=== PATIENT | male | born 1945 | race Caucasian/White ===

== ENCOUNTER 2019-09-02 08:45 | Observation (INO) ==
[~2019-09-02 08:45] MED LIST: EPHEDRINE SULFATE INJ ONE; NS IRRIGATION 3000 ML ONE
[2019-09-02] MEDS ORDERED: D5 1/2 NS 1000 ML 1,000 ML IV ONE (09:11)
[2019-09-02] MEDS ORDERED: DILAUDID INJ IVP ONE (09:17)
[2019-09-02 09:19] LABS: BASOPHILS # (AUTO) 0.1 X10^3/uL (0.0-0.1); BASOPHILS % (AUTO) 1.2 % (0.2-1.0); EOSINOPHILS # (AUTO) 0.2 x10^3/uL (0.0-0.2); EOSINOPHILS % (AUTO) 1.7 % (0.9-2.9); HEMATOCRIT 43.8 % (42.0-54.0); HEMOGLOBIN 15.1 g/dL (13.5-18.0); LYMPHOCYTES # (AUTO) 1.9 X10^3/uL (1.3-2.9); LYMPHOCYTES % (AUTO) 15.3 % (21.0-51.0); MEAN CORPUSCULAR HEMOGLOBIN 31.4 pg (27.0-34.0); MEAN CORPUSCULAR HGB CONC 34.4 g/dL (33.0-35.0); MEAN CORPUSCULAR VOLUME 91.3 fL (80.0-100.0); MEAN PLATELET VOLUME 8.3 fL (7.4-11.0); MONOCYTES % (AUTO) 8.3 % (0.0-13.0); NEUTROPHILS % (AUTO) 73.5 % (42.0-75.0); PLATELET COUNT 268 X10^3/uL (150.0-450.0); RED CELL DISTRIBUTION WIDTH 13.6 % (11.6-16.5); WHITE BLOOD COUNT 12.3 X10^3/uL (3.6-10.0)
[2019-09-02] MEDS ORDERED: DILAUDID INJ ONE ×3 (09:21→15:41)
[2019-09-02 09:26] LABS: ALANINE AMINOTRANSFERASE 27 Units/L (12-78); ALBUMIN 3.5 g/dL (3.4-5.0); ALKALINE PHOSPHATASE 93 Units/L (46-116); AMYLASE 22 Units/L (25-115); ASPARTATE AMINO TRANSFERASE 16 Units/L (15-37); BLOOD UREA NITROGEN 12 mg/dL (7-18); CALCIUM 8.5 mg/dL (8.5-10.1); CARBON DIOXIDE 31.4 mmol/L (21-32); CHLORIDE 100 mmol/L (98-107); COR NA(FOR HYPERGLY) 138 mmol/L (136-145); CREATININE 0.81 mg/dL (0.70-1.30); LIPASE 76 Units/L (73-393); SODIUM 136 mmol/L (136-145); TOTAL PROTEIN 7.2 g/dL (6.4-8.2); eGFR NON BLACK RACES > 60 (>60)
--- NOTE | 2019-09-02 09:57 | RAD ---
HISTORYSURGERY CLEARANCE FOR GBSTUDYSingle portable view of the chest.COMPARISONNone availableFINDINGSThe trachea is deviated rightward. The cardiac silhouette is enlarged. There is a subcentimeter RUL pulmonary nodule seen. The lungs are clear without focal infiltrate or effusion. The bony thorax is unremarkable.IMPRESSIONNo acute cardiopulmonary disease. Enlarged cardiomediastinal silhouette with a subcentimeter RUL pulmonary nodule, possibly reflecting a granuloma. Left suprahilar nodularity also appreciated. These could reflect suprahilar lymph nodes in this patient. Both of these findings should be followed up with outpatient chest CT imaging following the surgery, however.Electronically signed by: HAILEY BATRES III (Sep 02, 2019 09:55:57)
[2019-09-02] MEDS ORDERED: D5 1/2 NS 1000 ML 1,000 ML IV SCH ×2 (10:00→14:00)
[2019-09-02] MEDS ORDERED: FENTANYL INJ 250 mcg ONE (11:18)
[2019-09-02] MEDS ORDERED: BACTROBAN TOPICAL OINT ONE (11:22)
[2019-09-02] MEDS ORDERED: ANCEF 1 GRAM IV PREMIX* 2 G/100 ML BAG IV ONE (11:22)
--- NOTE | 2019-09-02 11:37 | DR.UPDATE ---
H&P Update History and Physical Update: History and Physical reviewed and patient examined. Changes noted: Yes with the following: HAS BEEN SEEN IN THE OFFICE FOR COMPLAINS OF RUQ PAIN, NAUSEA, AND VOMITING. HE HAD A HIDA SCAN ON 08/19 WHICH REVEALED A GALLBALDDER EJECTION FRACTION OF 0%. SYMPTOMS HAVE BEEN PERISTENT, WITHOUT SIGNIFICANT IMPROVEMENT. WE ADMITTED PATIENT FOR FURTHER EVALUATION AND TREATMENT OF INTRACTABLE ABDOMINAL PAIN, CHOLECYSTITIS, AND INTRACTABLE NAUSEA AND VOMITING. WE WILL CONSULT . ON ARRIVAL TO THE HOSPITAL, LABS WERE OBTAINED. ABNORMAL LAB VALUES INCLUDE THE FOLLOWING: WBC 12.3, PTT 57.4, GLUCOSE 171, AMYLASE 22. A CHEST XRAY WAS OBTAINED AND REVEALED: No acute cardiopulmonary disease. Enlarged cardiomediastinal silhouette with a subcentimeter RUL pulmonary nodule, possibly reflecting a granuloma. Left suprahilar nodularity also appreciated. These could reflect suprahilar lymph nodes in this patient. Both of these findings should be followed up with outpatient chest CT imaging following the surgery, however. EKG REVEALED: SINUS RHYTHM WITH HR 70. WE WILL START IV FLUIDS, ZOFRAN 4MG IV Q4H PRN, AND DILAUDID 1MG IV Q4H PRN. HE IS MEDICALLY STABLE AND CLEAR FOR CHOLECYSTECTOMY IF THAT IS WHAT HE AND DECIDES. OTHERWISE, WE WILL FOLLOW UP WITH AM LABS AND CONTINUE TO MONITOR. Prescription drug monitoring program results: PDMP reviewed and no concerns identified H&P Reviewed: Yes Patient was examined?: Yes
[2019-09-02] MEDS: DILAUDID INJ IVP PRN ×6 (12:55→20:56)
--- NOTE | 2019-09-02 13:00 | OR.IMMED ---
Immediate Post-Op Note - Immediate Post-Op Note Pre-Op Diagnosis: recurrent cholecystitis . Post-Op Diagnosis: distended GB with thick wall . Procedure: Lap maximo . Surgeon/Taxation Agent: Beatriz. Specimens Removed: GB. Estimated Blood Loss: 10 cc Drains: NONE Condition: Stable (clear liquid today . .low fat in Am)
[2019-09-02] MEDS ORDERED: REGLAN INJ 10 MG VIAL IVP PRN (13:03)
[2019-09-02] MEDS ORDERED: PHENERGAN INJ 25 MG IM PRN (13:03)
[2019-09-02] MEDS ORDERED: ZOFRAN INJ 4 MG VIAL IVP PRN ×2 (13:03→15:31)
[2019-09-02] MEDS ORDERED: BENADRYL INJ 50 MG VIAL IVP PRN (13:03)
[2019-09-02] MEDS ORDERED: QUELICIN (OR ANECTINE) ONE (14:17)
[2019-09-02] MEDS ORDERED: NORCURON INJ 10 MG VIAL ONE (14:17)
[2019-09-02] MEDS ORDERED: NEOSTIGMINE INJ ONE (14:17)
[2019-09-02] MEDS ORDERED: ZOFRAN INJ 4 MG VIAL ONE (14:17)
[2019-09-02] MEDS ORDERED: XYLOCAINE 2 % (PLAIN) ONE (14:17)
[2019-09-02] MEDS ORDERED: SUPRANE ONE (14:17)
[2019-09-02] MEDS ORDERED: VERSED ONE (14:17)
[2019-09-02] MEDS ORDERED: ROBINUL ONE (14:17)
[2019-09-02] MEDS ORDERED: DIPRIVAN VIAL ONE (14:17)
[2019-09-02 15:45] VITALS: BMI 33.9
[2019-09-02] MEDS: NS 1000 ML 1,000 ML IV SCH (16:50)
[2019-09-02] MEDS ORDERED: HumuLIN R SUBCUT PRN (17:07)
[2019-09-02] MEDS: NORCO 5/325 MG TAB PO PRN (17:50)
[2019-09-02] MEDS ORDERED: SNACK - Diabetic Appropriate PO SCH (20:00)
[2019-09-03] MEDS: NORCO 5/325 MG TAB PO PRN ×2 (01:27→05:34)
[2019-09-03] MEDS: NS 1000 ML 1,000 ML IV SCH (05:13)
[2019-09-03 06:22] LABS: BASOPHILS # (AUTO) 0.1 X10^3/uL (0.0-0.1); BASOPHILS % (AUTO) 0.6 % (0.2-1.0); EOSINOPHILS # (AUTO) 0.1 x10^3/uL (0.0-0.2); EOSINOPHILS % (AUTO) 0.8 % (0.9-2.9); HEMATOCRIT 40.1 % (42.0-54.0); HEMOGLOBIN 13.9 g/dL (13.5-18.0); LYMPHOCYTES # (AUTO) 1.3 X10^3/uL (1.3-2.9); LYMPHOCYTES % (AUTO) 9.2 % (21.0-51.0); MEAN CORPUSCULAR HEMOGLOBIN 31.4 pg (27.0-34.0); MEAN CORPUSCULAR HGB CONC 34.6 g/dL (33.0-35.0); MEAN CORPUSCULAR VOLUME 90.8 fL (80.0-100.0); MEAN PLATELET VOLUME 8.9 fL (7.4-11.0); MONOCYTES # (AUTO) 1.1 x10^3/uL (0.3-0.8); MONOCYTES % (AUTO) 7.7 % (0.0-13.0); NEUTROPHILS # (AUTO) 11.6 x10^3/uL (2.2-4.8); NEUTROPHILS % (AUTO) 81.7 % (42.0-75.0); PLATELET COUNT 228 X10^3/uL (150.0-450.0); RED BLOOD COUNT 4.41 X10^6/uL (4.7-6.0); RED CELL DISTRIBUTION WIDTH 13.9 % (11.6-16.5); WHITE BLOOD COUNT 14.2 X10^3/uL (3.6-10.0)
[2019-09-03 06:37] LABS: ALANINE AMINOTRANSFERASE 24 Units/L (12-78); ALKALINE PHOSPHATASE 70 Units/L (46-116); ASPARTATE AMINO TRANSFERASE 19 Units/L (15-37); BLOOD UREA NITROGEN 12 mg/dL (7-18); CALCIUM 7.6 mg/dL (8.5-10.1); CARBON DIOXIDE 28.7 mmol/L (21-32); CHLORIDE 100 mmol/L (98-107); COR CA(FOR HYPOALB) 8.4 mg/dL (8.5-10.1); COR NA(FOR HYPERGLY) 137 mmol/L (136-145); CREATININE 0.72 mg/dL (0.70-1.30); SODIUM 136 mmol/L (136-145); TOTAL PROTEIN 6.1 g/dL (6.4-8.2); eGFR NON BLACK RACES > 60 (>60)
[2019-09-03] MEDS ORDERED: MAGNESIUM SULFATE 1 GRAM/100 mL PREMIX 1 GM/100 ML BAG IV PRN (07:50)
[2019-09-03] MEDS ORDERED: POTASSIUM CHL 60 MEQ/NS 0.45% 500 ML IV PRN (07:50)
[2019-09-03] MEDS ORDERED: K-DUR TAB 20 MEQ PO PRN (07:50)
[2019-09-03] MEDS ORDERED: K-RIDER 10 MEQ/NS 100 ML 10 MEQ/100 ML BAG IV PRN (07:50)
[2019-09-03] MEDS ORDERED: POTASSIUM CHL 40 MEQ/NS 0.45% 500 ML IV PRN (07:50)
[2019-09-03] MEDS ORDERED: KLOR-CON PO PRN (07:50)
[2019-09-03] MEDS ORDERED: MICRO K EXTEN CAP 10 MEQ PO PRN (07:50)
[2019-09-03] MEDS ORDERED: POTASSIUM CHLORIDE LIQ 20 MEQ UDC PO PRN (07:50)
[2019-09-03 09:28] VITALS: BP 136/77
[2019-09-03 09:48] LABS: BILIRUBIN,URINE NEGATIVE (NEGATIVE); BLOOD/HEMOGLOBIN,URINE NEGATIVE (NEGATIVE); GLUCOSE, URINE 2+ (NEGATIVE); KETONES,URINE NEGATIVE (NEGATIVE); LEUKOCYTE ESTERASE ,URINE NEGATIVE (NEGATIVE); NITRITES,URINE NEGATIVE (NEGATIVE); PROTEIN,URINE NEGATIVE (NEGATIVE); UROBILINOGEN,URINE NORMAL (NORMAL)
[2019-09-03 09:50] LABS: APPEARANCE,URINE HAZY (CLEAR); COLOR,URINE YELLOW (YELLOW)
[2019-09-03 10:01] LABS: BACTERIA,URINE NEGATIVE /HPF (NEGATIVE); RBC,URINE NONE SEEN /HPF (0-3); SQUAMOUS EPITHELIAL CELL,UR NEGATIVE /HPF (NEGATIVE)
== END 2019-09-03 11:45 | disposition home or self-care (01) ==
LOC: OBS → MED/SURG 15:06
PROVIDERS: ADMIT Internal Medicine; ATTEND Internal Medicine
DX: R10.11 Right upper quadrant pain; Z01.810 Encounter for preprocedural cardiovascular examination; E66.8 Other obesity; R11.2 Nausea with vomiting, unspecified; K82.8 Other specified diseases of gallbladder; K81.1 Chronic cholecystitis; R94.31 Abnormal electrocardiogram [ECG] [EKG]; R10.84 Generalized abdominal pain
CPT/HCPCS: 36415; 71010; 71045; 80053; 81001; 82150; 83690; 83735; 85025; 85610; 85730; 93005; 94760; 96360; 96361; 96372; 96374; 99100; A4216; A4222; G0378; J0330; J0690; J1170; J1815; J2250; J2405; J2704; J2710; J3010; J3490; J7030; S5010

== ENCOUNTER 2019-11-27 11:57 | Inpatient (IN) ==
[2019-11-27] MEDS ORDERED: TUSSIONEX PENNKINETIC SUSP PO PRN (15:22)
[2019-11-27] MEDS ORDERED: NS 1000 ML 1,000 ML IV ONE (15:22)
[2019-11-27] MEDS ORDERED: STERILE WATER IRRIGATION IR ONE (16:06)
[2019-11-27] MEDS: ROBITUSSIN DM PO SCH ×3 (16:15→21:49)
[2019-11-27] MEDS: VSL#3 PO SCH (16:15)
[2019-11-27] MEDS: ZOSYN VIAL 4.5 GRAMS 4.5 G in NS 100 ML IV + SPIKE MINIBAG* 100 ML IV SCH ×3 (16:16→23:40)
[2019-11-27] MEDS ORDERED: HumuLIN R SUBCUT PRN (16:21)
[2019-11-27 16:39] LABS: BASOPHILS # (AUTO) 0.1 X10^3/uL (0.0-0.1); BASOPHILS % (AUTO) 0.5 % (0.2-1.0); EOSINOPHILS # (AUTO) 0.1 x10^3/uL (0.0-0.2); EOSINOPHILS % (AUTO) 0.7 % (0.9-2.9); HEMATOCRIT 36.1 % (42.0-54.0); HEMOGLOBIN 12.7 g/dL (13.5-18.0); LYMPHOCYTES # (AUTO) 1.8 X10^3/uL (1.3-2.9); MEAN CORPUSCULAR HEMOGLOBIN 30.7 pg (27.0-34.0); MEAN CORPUSCULAR HGB CONC 35.2 g/dL (33.0-35.0); MEAN CORPUSCULAR VOLUME 87.2 fL (80.0-100.0); MONOCYTES # (AUTO) 1.8 x10^3/uL (0.3-0.8); NEUTROPHILS # (AUTO) 14.5 x10^3/uL (2.2-4.8); NEUTROPHILS % (AUTO) 78.8 % (42.0-75.0); PLATELET COUNT 339 X10^3/uL (150.0-450.0); RED BLOOD COUNT 4.14 X10^6/uL (4.7-6.0); RED CELL DISTRIBUTION WIDTH 13.8 % (11.6-16.5); WHITE BLOOD COUNT 18.3 X10^3/uL (3.6-10.0)
[2019-11-27 17:30] VITALS: BMI 31.1
[2019-11-27] MEDS: NS 1000 ML 1,000 ML IV SCH (17:34)
[2019-11-27 18:42] LABS: ALANINE AMINOTRANSFERASE 18 Units/L (12-78); ALBUMIN 2.8 g/dL (3.4-5.0); ALKALINE PHOSPHATASE 77 Units/L (46-116); ASPARTATE AMINO TRANSFERASE 15 Units/L (15-37); BLOOD UREA NITROGEN 22 mg/dL (7-18); CALCIUM 8.6 mg/dL (8.5-10.1); CARBON DIOXIDE 25.1 mmol/L (21-32); CHLORIDE 98 mmol/L (98-107); COR CA(FOR HYPOALB) 9.6 mg/dL (8.5-10.1); COR NA(FOR HYPERGLY) 137 mmol/L (136-145); SODIUM 136 mmol/L (136-145); eGFR NON BLACK RACES > 60 (>60)
--- NOTE | 2019-11-27 19:11 | RAD ---
HISTORYFEVER, COUGHSTUDYSingle portable view of the chest.COMPARISONChest radiograph dated November 23, 2019.FINDINGSThe trachea is midline. The cardiac silhouette is enlarged but stable. The lungs are clear without focal infiltrate or effusion. The bony thorax is unremarkable. There is no evidence for CHF. There is no pneumothorax observed. No other acute cardiopulmonary disease.IMPRESSIONNo acute cardiopulmonary disease or changes. Enlarged cardiac silhouette.Electronically signed by: HAILEY BATRES III (November 27, 2019 19:10:01)
[2019-11-27] MEDS ORDERED: SNACK - Diabetic Appropriate PO SCH (20:00)
[2019-11-27] MEDS ORDERED: NORCO 10/325 TAB PO PRN (22:42)
[2019-11-28 05:29] LABS: BASOPHILS # (AUTO) 0.1 X10^3/uL (0.0-0.1); BASOPHILS % (AUTO) 0.9 % (0.2-1.0); EOSINOPHILS # (AUTO) 0.2 x10^3/uL (0.0-0.2); EOSINOPHILS % (AUTO) 1.5 % (0.9-2.9); HEMATOCRIT 38.7 % (42.0-54.0); HEMOGLOBIN 13.4 g/dL (13.5-18.0); LYMPHOCYTES # (AUTO) 1.9 X10^3/uL (1.3-2.9); MEAN CORPUSCULAR HEMOGLOBIN 30.2 pg (27.0-34.0); MEAN CORPUSCULAR HGB CONC 34.7 g/dL (33.0-35.0); MEAN PLATELET VOLUME 8.1 fL (7.4-11.0); MONOCYTES # (AUTO) 1.6 x10^3/uL (0.3-0.8); MONOCYTES % (AUTO) 10.9 % (0.0-13.0); NEUTROPHILS # (AUTO) 10.8 x10^3/uL (2.2-4.8); NEUTROPHILS % (AUTO) 73.7 % (42.0-75.0); PLATELET COUNT 261 X10^3/uL (150.0-450.0); RED BLOOD COUNT 4.44 X10^6/uL (4.7-6.0); RED CELL DISTRIBUTION WIDTH 13.5 % (11.6-16.5); WHITE BLOOD COUNT 14.7 X10^3/uL (3.6-10.0)
[2019-11-28 05:39] LABS: ALANINE AMINOTRANSFERASE 16 Units/L (12-78); ALBUMIN 2.6 g/dL (3.4-5.0); ALKALINE PHOSPHATASE 70 Units/L (46-116); ASPARTATE AMINO TRANSFERASE 14 Units/L (15-37); BLOOD UREA NITROGEN 13 mg/dL (7-18); CALCIUM 8.2 mg/dL (8.5-10.1); CARBON DIOXIDE 28.5 mmol/L (21-32); CHLORIDE 101 mmol/L (98-107); COR CA(FOR HYPOALB) 9.3 mg/dL (8.5-10.1); COR NA(FOR HYPERGLY) 138 mmol/L (136-145); CREATININE 0.98 mg/dL (0.70-1.30); SODIUM 137 mmol/L (136-145); TOTAL PROTEIN 6.6 g/dL (6.4-8.2); eGFR NON BLACK RACES > 60 (>60)
[2019-11-28] MEDS: NS 1000 ML 1,000 ML IV SCH ×2 (05:51→21:17)
[2019-11-28] MEDS: ZOSYN VIAL 4.5 GRAMS 4.5 G in NS 100 ML IV + SPIKE MINIBAG* 100 ML IV SCH ×3 (05:52→21:12)
--- NOTE | 2019-11-28 06:15 | RAD ---
HISTORYFever, coughSTUDYCHEST, 1 [id number]/13/2020FINDINGSThe heart is mildly enlarged. No congestive heart failure is noted. No acute alveolar infiltrates or pleural effusions are identified. There is a benign calcified granuloma in the right upper lobe. Bony thorax is unremarkable.IMPRESSIONMild cardiomegaly without congestive heart failureNo acute infiltratesOld granulomatous diseaseElectronically signed by: SASCHA TAO (November 28, 2019 06:14:18)
[2019-11-28 06:20] LABS: ERYTHROCYTE SEDIMENTATION RATE 83 MM/HOUR (0-15)
[2019-11-28] MEDS: ROBITUSSIN DM PO SCH ×4 (08:11→21:12)
[2019-11-28] MEDS: OXYBUTYNIN CHLORIDE ER PO SCH (08:11)
[2019-11-28] MEDS: NORVASC TAB 10 MG PO SCH (08:11)
[2019-11-28] MEDS: VSL#3 PO SCH (08:11)
[2019-11-28] MEDS: NexIUM PO SCH (08:11)
[2019-11-28] MEDS: LOVENOX INJ 40 MG SYR SC SCH (08:29)
--- NOTE | 2019-11-28 08:56 | CT ---
HISTORYNasal congestion, headache, feverSTUDYSINUS W/O CONTechnique: Axial noncontrast images with coronal and sagittal reformats. Dose reduction procedures were used with mA/kv adjusted for body size.COMPARISONNoneFINDINGSThe frontal, ethmoid, sphenoid, and right maxillary sinuses are clear. There is minimal mucosal inflammatory thickening in the left maxillary sinus. The ostiomeatal complexes are patent. There is leftward nasal septal deviation. The middle ear spaces and mastoid air cells are clear.IMPRESSIONMinimal mucosal inflammatory changes in the left maxillary sinusThe remainder of the paranasal sinuses are clear.Electronically signed by: SASCHA TAO (November 28, 2019 08:55:17)
--- NOTE | 2019-11-28 09:12 | CT ---
HISTORYSOB, COUGH, FEVERSTUDYCT OF THE CHEST WITHOUT CONTRASTCOMPARISONMAY [address] CHE[address] X-RAYTECHNIQUEAxial CT was performed from the thoracic inlet to the upper abdomen WITHOUT IV contrast. The axial sequences are reconstructed with multiplaner reformats.FINDINGSThe lungs are equally expanded. Hypostatic atelectatic changes are demonstrated within the dependent lung bases, right more so than left. Calcified sub carinal, right paratracheal and right hilar lymph nodes are observed. Additionally, there are calcified left hilar nodes. Sub cm calcified granuloma are demonstrated within the right and left lung and also within the spleen and liver, all consistent with prior granulomatous disease.Bronchial wall thickening with nonocclusive endobronchial secretions are observed within the dependent lung bases. There is a bilobed peribronchial nodule with linear craniocaudal orientation in the right lower lobe, coronal image 61, axial image 66 through 72 with a maximum transverse diameter approaching 10 mm over a craniocaudal length of approximately 19 mm. Within the left lower lobe, there is a peribronchial nodule observed on image 40, series 3 with a maximum transverse diameter of 10 mm. Ground-glass nodule image 71, series 9 in the right lower lobe is seen subjacent to the previously described dominant bilobed peribronchial nodule. This smaller ground-glass nodule measures 4 mm.Otherwise, there are no separate sites of consolidation and the pleural spaces are clear. There is a small to moderate sized dependent pericardial effusion. Coronary artery atherosclerosis is evident. Atherosclerotic calcifications are also demonstrated in association with the aortic and mitral valve respectively. Thoracic aorta maintains a normal caliber. Heart size is average. The imaged portions of the upper abdomen demonstrate no acute abnormalities. The gallbladder is surgically absent. There is evidence of diverticulosis of the colon without evidence of acute diverticulitis within the field of view.Review of bone windows demonstrates degenerative findings of spondylosis and diffuse idiopathic skeletal hyperostosis with no aggressive lytic or blastic lesions or acute osseous abnormalities otherwise noted.IMPRESSIONFindings consistent with bronchiolitis within the bilateral lower lobes associated with minimal dependent atelectasis.Peribronchial nodules within the right and left lower lobe may be postinflammatory in nature. Short-term follow-up CT is recommended within 1-3 months to monitor for resolutionOld granulomatous disease of the chest, liver and spleen.Small to moderate pericardial effusionCoronary atherosclerosisColonic diverticulosis.Radiation dose reduction was achieved through individualized adjustment of kVP and/or mA, through adaptive statistical iterative reconstruction, and/or through automated tube current modulation.Electronically signed by: COLEEN DEJESUS (November 28, 2019 09:10:39)
--- NOTE | 2019-11-28 13:08 | DR.UPDATE ---
H&P Update History and Physical Update: History and Physical reviewed and patient examined. Changes noted: Yes with the following: WAS SEEN IN THE OFFICE TODAY FOR COMPLAINTS OF PERSISTENT COUGH, NASAL CONGESTION, FEVER, AND SHORTNESS OF BREATH. SYMPTOMS STARTED APPROXIMATELY TWO WEEKS AGO AND HAVE PROGRESSIVELY GOTTEN WORSE. COUGH IS DRY AND NON-PRODUCTIVE. HE WAS TESTED FOR COVID-19 ONE WEEK PRIOR. RESULTS WERE NEGATIVE. HE WAS STARTED ON A Z-PACK ON 11/23/19. HIS PMH INCLUDES HTN, GERD, DIABETES MELLITUS II, AND A CHOLECYTECTOMY. EXAMINATION REVEALED SCATTERED WHEEZING TO BILATERAL LUNGS. HE WAS ADMITTED TO THE HOSPITAL FOR FURTHER EVALUATION AND TREATMENT OF BRONCHOPNEUMONIA, ACUTE SINUS INFECTION, AND UNCONTROLLED DIABETES. ON ADMISSION, VITALS WERE 99.2-99-15-96%-126/69. LABS WERE OBTAINED. ABNORMAL LAB VALUES INCLUDE THE FOLLOWING: WBC 18.3, RBC 4.14, HGB 12.7, HCT 36.1, BUN 22, GLUCOSE 137, ALBUMIN 2.8. HE WAS SWABBED AGAIN FOR COVID-19. BLOOD CULTURES WERE SET UP. A CHEST XRAY WAS OBTAINED AND REVEALED: No acute cardiopulmonary disease or changes. Enlarged cardiac silhouette. A CHEST CT WITHOUT CONTRAST WAS OBTAINED AND REVEALED: Findings consistent with bronchiolitis within the bilateral lower lobes associated with minimal dependent atelectasis. Peribronchial nodules within the right and left lower lobe may be postinflammatory in nature. Short-term follow-up CT is recommended within 1-3 months to monitor for resolution. Old granulomatous disease of the chest, liver and spleen. Small to moderate pericardial effusion. Coronary atherosclerosis. Colonic diverticulosis. A SINUS CT WAS OBTAINED AND REVEALED: Minimal mucosal inflammatory changes in the left maxillary sinus. The remainder of the paranasal sinuses are clear. HE WAS STARTED ON NORMLA SALINE AT 75 ML/HR, ZOSYN 4.5G IV TID, TUSSIONEX 5ML Q12H PRN, LOVENOX 40MG SC DAILY, ROBITUSSIN DM 10ML PO QID, HUMULIN R SLIDING SCALE, AND HOME MEDICATIONS WERE RESUMED. OTHERWISE, WE WILL FOLLOW UP WITH AM LABS AND CHEST XRAY AND CONTINUE TO MONITOR. Prescription drug monitoring program results: PDMP was not reviewed H&P Reviewed: Yes Patient was examined?: Yes
[2019-11-28] MEDS: VOLTAREN 1 % GEL MULTI DOSE TUBE TOP SCH ×2 (13:44→21:13)
[2019-11-29] MEDS: VOLTAREN 1 % GEL MULTI DOSE TUBE TOP SCH (06:15)
[2019-11-29] MEDS: ZOSYN VIAL 4.5 GRAMS 4.5 G in NS 100 ML IV + SPIKE MINIBAG* 100 ML IV SCH (06:15)
[2019-11-29 06:17] LABS: BASOPHILS # (AUTO) 0.1 X10^3/uL (0.0-0.1); BASOPHILS % (AUTO) 0.9 % (0.2-1.0); EOSINOPHILS # (AUTO) 0.3 x10^3/uL (0.0-0.2); EOSINOPHILS % (AUTO) 2.1 % (0.9-2.9); HEMATOCRIT 38.8 % (42.0-54.0); HEMOGLOBIN 13.4 g/dL (13.5-18.0); LYMPHOCYTES # (AUTO) 1.7 X10^3/uL (1.3-2.9); LYMPHOCYTES % (AUTO) 14.3 % (21.0-51.0); MEAN CORPUSCULAR HGB CONC 34.5 g/dL (33.0-35.0); MEAN CORPUSCULAR VOLUME 86.9 fL (80.0-100.0); MEAN PLATELET VOLUME 8.1 fL (7.4-11.0); MONOCYTES # (AUTO) 1.2 x10^3/uL (0.3-0.8); MONOCYTES % (AUTO) 10.2 % (0.0-13.0); NEUTROPHILS # (AUTO) 8.8 x10^3/uL (2.2-4.8); NEUTROPHILS % (AUTO) 72.5 % (42.0-75.0); PLATELET COUNT 271 X10^3/uL (150.0-450.0); RED BLOOD COUNT 4.46 X10^6/uL (4.7-6.0); RED CELL DISTRIBUTION WIDTH 13.2 % (11.6-16.5); WHITE BLOOD COUNT 12.2 X10^3/uL (3.6-10.0)
[2019-11-29 06:25] LABS: ALANINE AMINOTRANSFERASE 17 Units/L (12-78); ALBUMIN 2.6 g/dL (3.4-5.0); ALKALINE PHOSPHATASE 70 Units/L (46-116); ASPARTATE AMINO TRANSFERASE 17 Units/L (15-37); BLOOD UREA NITROGEN 8 mg/dL (7-18); CALCIUM 8.4 mg/dL (8.5-10.1); CARBON DIOXIDE 26.9 mmol/L (21-32); CHLORIDE 103 mmol/L (98-107); COR CA(FOR HYPOALB) 9.5 mg/dL (8.5-10.1); COR NA(FOR HYPERGLY) 139 mmol/L (136-145); CREATININE 0.83 mg/dL (0.70-1.30); SODIUM 138 mmol/L (136-145); TOTAL PROTEIN 6.6 g/dL (6.4-8.2); eGFR NON BLACK RACES > 60 (>60)
--- NOTE | 2019-11-29 06:38 | RAD ---
HISTORYShortness of breathSTUDYCHEST, 1 [id number]/14/2020FINDINGSThe heart is enlarged. No congestive heart failure is noted. No acute alveolar infiltrates or pleural effusions are identified. There is a benign calcified granuloma in the right upper lobe. No pleural effusions are identified. Bony thorax is unremarkable.IMPRESSIONCardiomegaly without congestive heart failureNo acute infiltratesOld granulomatous diseaseElectronically signed by: SASCHA TAO (November 29, 2019 06:37:08)
[2019-11-29] MEDS ORDERED: POTASSIUM CHL 40 MEQ/NS 0.45% 500 ML IV PRN (06:50)
[2019-11-29] MEDS ORDERED: MICRO K EXTEN CAP 10 MEQ PO PRN (06:50)
[2019-11-29] MEDS ORDERED: KLOR-CON PO PRN (06:50)
[2019-11-29] MEDS ORDERED: POTASSIUM CHLORIDE LIQ 20 MEQ UDC PO PRN (06:50)
[2019-11-29] MEDS ORDERED: K-DUR TAB 20 MEQ PO PRN (06:50)
[2019-11-29] MEDS ORDERED: POTASSIUM CHL 60 MEQ/NS 0.45% 500 ML IV PRN (06:50)
[2019-11-29] MEDS ORDERED: K-RIDER 10 MEQ/NS 100 ML 10 MEQ/100 ML BAG IV PRN (06:50)
[2019-11-29 06:57] LABS: ERYTHROCYTE SEDIMENTATION RATE 93 MM/HOUR (0-15)
[2019-11-29] MEDS ORDERED: MAGNESIUM SULFATE 1 GRAM/100 mL PREMIX 1 GM/100 ML BAG IV PRN (08:15)
[2019-11-29] MEDS: OXYBUTYNIN CHLORIDE ER PO SCH (09:28)
[2019-11-29] MEDS: NORVASC TAB 10 MG PO SCH (09:28)
[2019-11-29] MEDS: VSL#3 PO SCH (09:28)
[2019-11-29] MEDS: NexIUM PO SCH (09:29)
[2019-11-29] MEDS: ROBITUSSIN DM PO SCH (09:29)
[2019-11-29] MEDS: LOVENOX INJ 40 MG SYR SC SCH (09:29)
[2019-11-29 09:50] VITALS: BP 126/65
== END 2019-11-29 12:35 | disposition home or self-care (01) | DRG 195 ==
LOC: ICU 14:52 → MED/SURG 11-28 13:51
PROVIDERS: ADMIT Internal Medicine; ATTEND Internal Medicine
DX: Z11.59 Encounter for screening for other viral diseases; K21.9 Gastro-esophageal reflux disease without esophagitis; J01.00 Acute maxillary sinusitis, unspecified; J18.0 Bronchopneumonia, unspecified organism; I10 Essential (primary) hypertension; E11.65 Type 2 diabetes mellitus with hyperglycemia; R06.02 Shortness of breath; R50.9 Fever, unspecified
CPT/HCPCS: 36415; 70486; 71010; 71045; 71250; 80053; 83735; 85025; 85652; 86140; 87040; 87077; 87186; A4222; J1650; J2543; J7030; J7050

== ENCOUNTER 2020-03-07 12:34 | Observation (INO) ==
[2020-03-07 14:43] LABS: BASOPHILS # (AUTO) 0.1 X10^3/uL (0.0-0.1); BASOPHILS % (AUTO) 0.7 % (0.2-1.0); EOSINOPHILS # (AUTO) 0.7 x10^3/uL (0.0-0.2); EOSINOPHILS % (AUTO) 3.5 % (0.9-2.9); HEMATOCRIT 37.1 % (42.0-54.0); HEMOGLOBIN 12.5 g/dL (13.5-18.0); LYMPHOCYTES # (AUTO) 1.6 X10^3/uL (1.3-2.9); LYMPHOCYTES % (AUTO) 8.5 % (21.0-51.0); MEAN CORPUSCULAR HEMOGLOBIN 27.6 pg (27.0-34.0); MEAN CORPUSCULAR HGB CONC 33.6 g/dL (33.0-35.0); MEAN CORPUSCULAR VOLUME 82.1 fL (80.0-100.0); MONOCYTES # (AUTO) 1.7 x10^3/uL (0.3-0.8); MONOCYTES % (AUTO) 8.7 % (0.0-13.0); NEUTROPHILS # (AUTO) 14.9 x10^3/uL (2.2-4.8); NEUTROPHILS % (AUTO) 78.6 % (42.0-75.0); PLATELET COUNT 328 X10^3/uL (150.0-450.0); RED BLOOD COUNT 4.52 X10^6/uL (4.7-6.0); RED CELL DISTRIBUTION WIDTH 14.1 % (11.6-16.5)
[2020-03-07 14:53] LABS: ALANINE AMINOTRANSFERASE 24 Units/L (12-78); ALBUMIN 2.9 g/dL (3.4-5.0); ALKALINE PHOSPHATASE 105 Units/L (46-116); ASPARTATE AMINO TRANSFERASE 19 Units/L (15-37); BLOOD UREA NITROGEN 13 mg/dL (7-18); CALCIUM 8.5 mg/dL (8.5-10.1); CARBON DIOXIDE 27.6 mmol/L (21-32); CHLORIDE 98 mmol/L (98-107); COR CA(FOR HYPOALB) 9.4 mg/dL (8.5-10.1); COR NA(FOR HYPERGLY) 135 mmol/L (136-145); CREATININE 1.05 mg/dL (0.70-1.30); SODIUM 134 mmol/L (136-145); TOTAL PROTEIN 7.5 g/dL (6.4-8.2); eGFR NON BLACK RACES > 60 (>60)
[2020-03-07 15:25] LABS: CREATINE KINASE 20 Units/L (39-308); CREATINE KINASE MB < 1.0 ng/mL (0-4.0); TROPONIN I < 0.02 ng/mL (0-1.5)
[2020-03-07] MEDS: PULMICORT NEB TX 0.5 MG NEB SCH ×2 (15:35→20:45)
[2020-03-07 15:53] LABS: ABG ALLEN TEST POS; ABG HCO3 25.5 mmol/L (22-26)
--- NOTE | 2020-03-07 16:03 | RAD ---
HISTORYChest pain SOBSTUDYPortable AP [id number]/15/2020FINDINGSContinued cardiomegaly with left ventricular hypertrophy. The lungs are clear. There is no evidence for CHF, pneumonia or pleural fluid.IMPRESSIONNo change; no acute fin dings. Stable cardiac enlargement.Electronically signed by: DAVID MATUTE (Mar 07, 2020 16:02:28)
[2020-03-07 17:29] VITALS: BMI 26.9
[2020-03-07] MEDS: NS 1000 ML 1,000 ML IV SCH (17:31)
[2020-03-07] MEDS: LEVAQUIN PREMIX IV 500 MG 500 MG/100 ML BAG IV SCH (17:31)
[2020-03-07] MEDS: DUONEB 0.5 MG/3 MG (3 mL) NEB SCH ×2 (18:00→20:45)
[2020-03-07 19:25] LABS: CREATINE KINASE 20 Units/L (39-308); CREATINE KINASE MB < 1.0 ng/mL (0-4.0); TROPONIN I < 0.02 ng/mL (0-1.5)
[2020-03-07] MEDS: RESTORIL CAP 15 MG PO PRN ×2 (20:57→21:03)
[2020-03-07 23:16] LABS: CKMB % 7.7 % (<4); CREATINE KINASE 13 Units/L (39-308); CREATINE KINASE MB < 1.0 ng/mL (0-4.0); TROPONIN I < 0.02 ng/mL (0-1.5)
[2020-03-08] MEDS: NS 1000 ML 1,000 ML IV SCH ×3 (04:38→20:22)
[2020-03-08 05:06] LABS: ABG ALLEN TEST POS; ABG BASE EXCESS 3.6 mmol/L (-2.0-2.0); ABG HCO3 26.1 mmol/L (22-26)
[2020-03-08 06:18] LABS: BASOPHILS % (AUTO) 0.2 % (0.2-1.0); EOSINOPHILS # (AUTO) 0.6 x10^3/uL (0.0-0.2); EOSINOPHILS % (AUTO) 3.4 % (0.9-2.9); HEMATOCRIT 34.4 % (42.0-54.0); HEMOGLOBIN 11.2 g/dL (13.5-18.0); LYMPHOCYTES # (AUTO) 1.8 X10^3/uL (1.3-2.9); LYMPHOCYTES % (AUTO) 10.3 % (21.0-51.0); MEAN CORPUSCULAR HEMOGLOBIN 27.2 pg (27.0-34.0); MEAN CORPUSCULAR HGB CONC 32.7 g/dL (33.0-35.0); MEAN CORPUSCULAR VOLUME 83.1 fL (80.0-100.0); MEAN PLATELET VOLUME 8.9 fL (7.4-11.0); MONOCYTES # (AUTO) 1.6 x10^3/uL (0.3-0.8); MONOCYTES % (AUTO) 9.1 % (0.0-13.0); NEUTROPHILS # (AUTO) 13.2 x10^3/uL (2.2-4.8); PLATELET COUNT 303 X10^3/uL (150.0-450.0); RED BLOOD COUNT 4.14 X10^6/uL (4.7-6.0); RED CELL DISTRIBUTION WIDTH 14.1 % (11.6-16.5); WHITE BLOOD COUNT 17.1 X10^3/uL (3.6-10.0)
[2020-03-08 06:26] LABS: ALANINE AMINOTRANSFERASE 18 Units/L (12-78); ALBUMIN 2.5 g/dL (3.4-5.0); ALKALINE PHOSPHATASE 91 Units/L (46-116); ASPARTATE AMINO TRANSFERASE 14 Units/L (15-37); BLOOD UREA NITROGEN 9 mg/dL (7-18); CALCIUM 8.2 mg/dL (8.5-10.1); CARBON DIOXIDE 28.3 mmol/L (21-32); CHLORIDE 101 mmol/L (98-107); COR CA(FOR HYPOALB) 9.4 mg/dL (8.5-10.1); COR NA(FOR HYPERGLY) 137 mmol/L (136-145); CREATININE 0.95 mg/dL (0.70-1.30); SODIUM 137 mmol/L (136-145); TOTAL PROTEIN 6.6 g/dL (6.4-8.2); eGFR NON BLACK RACES > 60 (>60)
--- NOTE | 2020-03-08 07:03 | RAD ---
HISTORYShortness of breathSTUDYChest AP [id number]/22/2020FINDINGSThe heart remains enlarged. No congestive heart failure is noted. No acute alveolar infiltrates or pleural effusions are identified. There is a benign calcified granuloma in the right upper lobe.IMPRESSIONContinued cardiomegaly without congestive heart failureNo definite infiltratesElectronically signed by: SASCHA TAO (Mar 08, 2020 07:02:37)
[2020-03-08] MEDS: LEVAQUIN PREMIX IV 500 MG 500 MG/100 ML BAG IV SCH (08:06)
[2020-03-08] MEDS ORDERED: STERILE WATER IRRIGATION IR ONE (09:33)
[2020-03-08] MEDS: DUONEB 0.5 MG/3 MG (3 mL) NEB SCH ×4 (09:40→21:59)
[2020-03-08] MEDS: PULMICORT NEB TX 0.5 MG NEB SCH ×2 (09:40→21:59)
[2020-03-08] MEDS ORDERED: BENADRYL CAP/TAB 25 MG PO PRN (10:28)
[2020-03-08] MEDS ORDERED: NORCO 5/325 MG TAB ONE (11:15)
[2020-03-08] MEDS: CIPRO IV 400 MG PREMIX* 400 MG/200 ML IV.SOLN. IV SCH ×2 (11:15→20:22)
[2020-03-08] MEDS: ZOSYN VIAL 4.5 GRAMS 4.5 G in NS 100 ML IV + SPIKE MINIBAG* 100 ML IV SCH ×3 (11:16→21:18)
[2020-03-08] MEDS: DIFLUCAN 200 MG IV PREMIX* 200 MG/100 ML BAG IV SCH (11:16)
[2020-03-08] MEDS: PERCOCET TAB 5/325 MG PO PRN ×2 (11:18→20:21)
[2020-03-08] MEDS: COLCRYS TAB 0.6 MG PO SCH ×2 (11:26→20:20)
[2020-03-08] MEDS: OXYBUTYNIN CHLORIDE ER PO SCH (11:27)
[2020-03-08] MEDS: GLUCOPHAGE PO SCH ×2 (11:28→20:21)
[2020-03-08] MEDS ORDERED: DUONEB 0.5 MG/3 MG (3 mL) NEB PRN (18:52)
[2020-03-08] MEDS ORDERED: GLUCOPHAGE ONE (19:00)
[2020-03-08] MEDS: RESTORIL CAP 15 MG PO PRN (20:20)
--- NOTE | 2020-03-08 22:32 | DR.H&P ---
H&P - History & Physical for Day of: H&P Date: 03/07/20 - Chief Complaint Chief Complaint: SHORTNESS OF BREATH, COUGH, WEAKNESS - History of Present Illness History of Present Illness: WAS A DIRECT ADMISSION DUE TO COMPLAINTS OF CHEST PAIN, COUGH, SHORTNESS OF BREATH, WEAKNESS, INSOMNIA, AND DECREASED APPETITE. HE HAD A CHEST CT WITH CONTRAST ONE WEEK AGO, WHICH REVEALED 1. Moderate-sized pericardial effusion and trace left pleural effusion. 2. Resolution of previous bibasilar nodules which may have been inflammatory in nature. No new infiltrates. 3. Coronary atherosclerotic disease. HE ALSO HAD AN ABDOMEN CT WHICH REVEALED: Unchanged enlarged liver and spleen with calcified granulomas in the spleen and liver 2. New very small left pleural effusion and increasing size of pericardial effusion. HE WAS REFERRED TO CARDIOLOGY. THEY PLAN FOR AN ECHO NEXT WEEK. HE HAS BEEN SWABBED FOR COVID-19 SEVERAL TIMES, BUT HAS BEEN NEGATIVE. HIS PMH INCLUDES HTN, GERD, CHRONIC BACK PAIN, DM II, AND CHOLECYSTECTOMY. ON ARRIVAL TO THE HOSPITAL, VITALS WERE 98.7-88-20-98%-137/63. LABS WERE OBTAINED. ABNORMAL LAB VALUES INCLUDE THE FOLLOWING: WBC 19.0, RBC 4.52, HGB 12.5, HCT 37.1, SODIUM 134, GLUCOSE 159, FERRITIN 914, CRP 80.80, BNP 481, ALBUMIN 2.9. CREATINE KINASE 20, CARDIAC ENZYMES OTHERWISE WITHIN NORMAL LIMITS. AN ABG WAS OBTAINED AND REVEALED: PH 7.470, PC02 35, P02 77, HC03 25.5, 02 SAT 96, FI02 21. COVID-19 PENDING. BLOOD CULTURES WERE SET UP. A CHEST XRAY WAS OBTAINED AND REVEALED: No change; no acute findings. Stable cardiac enlargement. EKG REVEALED: SINUS RHYTHM WITH HR 84. HE WAS STARTED ON LEVAQUIN 500MG IV DAILY, NS AT 75 ML/HR, DUONEBS QID, PULMICORT BID, TEMAZEPAM 15MG PO HS, AND SUPPLEMENTAL OXYGEN. WE WILL OBTAIN SERIAL CARDIAC ENZYMES AND EKGS. OTHERWISE, WE PLAN TO FOLLOW UP WITH AM LABS AND CHEST XRAY AND CONTINUE TO MONITOR. - Past Medical History Past Medical History: Hypertension, Diabetes, GERD, Gout, Sleep Apnea Additional Medical History: HX OF BPH - Past Surgical History Surgical History: Cholecystectomy Additional Surgical History: HX OF CATARACT SURGERY - Family History Family Medical History: Diabetes Mellitus, Cancer, Hypertension - Social History Does any household member use tobacco: No Alcohol Use: Occasionally Drug Use: None - Medications Home Medications: Sulfa (Sulfonamide Antibiotics) [SULFA] Allergy (Verified 01/03/20 13:03) CONTINUE taking the following medications colchicine [Colcrys] 0.6 mg PO BID 03/07/20 [History] diphenhydramine HCl [Allergy (diphenhydramine)] 25 mg PO PRN PRN 03/07/20 [History] oxycodone-acetaminophen [Endocet] 7.5 tab PO PRN PRN 03/07/20 [History] - Review of Systems Constitutional: See HPI, Weakness, Malaise, Other (DECREASED APPETITE ) Eyes: No Symptoms Reported ENT: No Symptoms Reported Respiratory: See HPI, Cough, Shortness of Breath, SOB with Excertion Cardiovascular: No Symptoms Reported Gastrointestinal: No Symptoms Reported Genitourinary: No Symptoms Reported Musculoskeletal: No Symptoms Reported Skin: No Symptoms Reported Neurological: Weakness - Physical Exam Vital Signs: Temperature 98.3 F Pulse Rate [Left Radial] 87 Pulse Rate 80 Respiratory Rate 20 Blood Pressure [Left Arm] 116/54 Blood Pressure [Right Arm] 121/68 Blood Pressure [Left Arm] 105/57 Blood Pressure 120/57 O2 Sat by Pulse Oximetry 95 Oriented: Normal Eyes: Normal Ear: Normal Nose: Normal Throat: Normal Respiratory: Diminished Throughout Cardiovascular: Normal : Normal Auscultation: Bowel Sounds: Normal Palpation: Normal Tenderness: Normal Skin: Normal Musculoskeletal: Normal Psychiatric: Normal Mood Description: Calm Affect: Normal Speech Pattern: Clear - Assessment/Plan (1) Bronchopneumonia Status: Acute Plan: ADMIT, LEVAQUIN 500MG IV DAILY, NS AT 75 ML/HR, DUONEBS QID, PULMICORT BID, TEMAZEPAM 15MG PO HS, AND SUPPLEMENTAL OXYGEN, REVIEW HOME MEDICATIONS, CONTINUE TO MONITOR (2) Pericardial effusion Status: Acute (3) Dyspnea Qualifiers: Dyspnea type: shortness of breath Qualified Code(s): R06.02 - Shortness of breath; R06.00 - Dyspnea, unspecified; R06.01 - Orthopnea Status: Acute (4) Chest pain Qualifiers: Chest pain type: unspecified Qualified Code(s): R07.9 - Chest pain, unspecified Status: Acute (5) Weakness Status: Acute (6) Elevated C-reactive protein (CRP) Status: Acute - Allergies Allergies/Adverse Reactions: Allergies Allergy/AdvReac Type Severity Reaction Status Date / Time Sulfa (Sulfonamide Allergy Verified 01/03/20 13:03 Antibiotics) [SULFA]
[2020-03-09] MEDS ORDERED: ZOSYN VIAL 4.5 GRAMS IV ONE (02:21)
[2020-03-09] MEDS ORDERED: NS 100 ML IV + SPIKE MINIBAG* 200 ML IV ONE (02:26)
[2020-03-09] MEDS: ZOSYN VIAL 4.5 GRAMS 4.5 G in NS 100 ML IV + SPIKE MINIBAG* 100 ML IV SCH (05:27)
[2020-03-09 06:34] LABS: ALANINE AMINOTRANSFERASE 15 Units/L (12-78); ALBUMIN 2.5 g/dL (3.4-5.0); ALKALINE PHOSPHATASE 86 Units/L (46-116); ASPARTATE AMINO TRANSFERASE 14 Units/L (15-37); BLOOD UREA NITROGEN 8 mg/dL (7-18); CALCIUM 8.3 mg/dL (8.5-10.1); CARBON DIOXIDE 25.8 mmol/L (21-32); CHLORIDE 104 mmol/L (98-107); COR CA(FOR HYPOALB) 9.5 mg/dL (8.5-10.1); COR NA(FOR HYPERGLY) 140 mmol/L (136-145); CREATININE 0.93 mg/dL (0.70-1.30); SODIUM 140 mmol/L (136-145); TOTAL PROTEIN 6.7 g/dL (6.4-8.2); eGFR NON BLACK RACES > 60 (>60)
[2020-03-09 06:38] LABS: BASOPHILS # (AUTO) 0.1 X10^3/uL (0.0-0.1); BASOPHILS % (AUTO) 0.5 % (0.2-1.0); EOSINOPHILS # (AUTO) 0.8 x10^3/uL (0.0-0.2); EOSINOPHILS % (AUTO) 5.2 % (0.9-2.9); HEMATOCRIT 35.4 % (42.0-54.0); HEMOGLOBIN 11.7 g/dL (13.5-18.0); LYMPHOCYTES # (AUTO) 1.5 X10^3/uL (1.3-2.9); MEAN CORPUSCULAR HEMOGLOBIN 27.3 pg (27.0-34.0); MEAN CORPUSCULAR HGB CONC 33.1 g/dL (33.0-35.0); MEAN CORPUSCULAR VOLUME 82.5 fL (80.0-100.0); MEAN PLATELET VOLUME 8.5 fL (7.4-11.0); MONOCYTES # (AUTO) 1.2 x10^3/uL (0.3-0.8); MONOCYTES % (AUTO) 8.4 % (0.0-13.0); NEUTROPHILS # (AUTO) 11.1 x10^3/uL (2.2-4.8); NEUTROPHILS % (AUTO) 75.9 % (42.0-75.0); PLATELET COUNT 305 X10^3/uL (150.0-450.0); RED BLOOD COUNT 4.29 X10^6/uL (4.7-6.0); RED CELL DISTRIBUTION WIDTH 14.3 % (11.6-16.5); WHITE BLOOD COUNT 14.7 X10^3/uL (3.6-10.0)
[2020-03-09] MEDS ORDERED: GLUCOPHAGE ONE (07:29)
--- NOTE | 2020-03-09 07:46 | RAD ---
HISTORYShort of breathSTUDYCHEST, 1 VIEWCOMPARISONChest film March 08, 2020FINDINGSThe trachea is midline. The cardiac silhouette is borderline enlarged but stable in size.. The lungs are clear without focal infiltrate or effusion. The bony thorax is unremarkable. There is a stable nodule right upper lung field consistent with a calcified granuloma unchanged from September 02 2019 prior portable chest and chest CT February 28 2020IMPRESSIONStable cardiomegaly due in part to a pericardial effusion seen on recent CT scan February 28, 2020 and old granulomas disease.Electronically signed by: AMBROSIO CAICEDO (Mar 09, 2020 07:45:13)
[2020-03-09 08:43] VITALS: BP 120/58
[2020-03-09] MEDS: GLUCOPHAGE PO SCH (09:05)
[2020-03-09] MEDS: OXYBUTYNIN CHLORIDE ER PO SCH (09:05)
[2020-03-09] MEDS: DIFLUCAN 200 MG IV PREMIX* 200 MG/100 ML BAG IV SCH (09:05)
[2020-03-09] MEDS: COLCRYS TAB 0.6 MG PO SCH (09:05)
[2020-03-09] MEDS: PULMICORT NEB TX 0.5 MG NEB SCH (09:45)
[2020-03-09] MEDS: DUONEB 0.5 MG/3 MG (3 mL) NEB SCH (09:45)
[2020-03-09] MEDS ORDERED: LOVENOX INJ 40 MG SYR SC SCH (10:00)
[2020-03-09] MEDS ORDERED: CANDIDA ALBICANS SKIN TEST ID ONE (10:23)
[2020-03-09] MEDS: CIPRO IV 400 MG PREMIX* 400 MG/200 ML IV.SOLN. IV SCH (11:10)
[2020-03-09] MEDS: NS 1000 ML 1,000 ML IV SCH (11:26)
[2020-03-09 11:33] LABS: FREE T4 (FREE THYROXINE) 1.43 ng/dL (0.76-1.46); TSH (3RD GENERATION) 1.008 uIU/mL (0.358-3.74)
[2020-03-09 13:31] LABS: RHEUMATOID FACTOR NEGATIVE (NEGATIVE)
== END 2020-03-09 12:30 | disposition home or self-care (01) ==
LOC: MED/SURG
PROVIDERS: ADMIT Internal Medicine; ATTEND Internal Medicine
DX: K21.9 Gastro-esophageal reflux disease without esophagitis; E11.65 Type 2 diabetes mellitus with hyperglycemia; J16.8 Pneumonia due to other specified infectious organisms; Z20.828 Contact with and (suspected) exposure to other viral communicable diseases; R06.02 Shortness of breath; I10 Essential (primary) hypertension; I31.3 Pericardial effusion (noninflammatory); R53.1 Weakness; R79.82 Elevated C-reactive protein (CRP); B95.2 Enterococcus as the cause of diseases classified elsewhere